=== PATIENT | female | born 1990 | race Caucasian/White ===

== ENCOUNTER → 2019-11-15 | Outpatient (REF) | payer OTHER, MEDICAID ==
[~2019-11-15] MED LIST: IBUP80TA PO; MAPA500T2 PO; VITAPRTA PO; ZANT150T40 PO
== END ==
LOC: M PLALAB 10:10
PROVIDERS: ATTEND Obstetrics & Gynecology
DX: Z34.91 Encounter for supervision of normal pregnancy, unspecified, first trimester (principal)

== ENCOUNTER → 2019-11-17 | Outpatient (CLI) | payer OTHER, MEDICAID | LOC: M WHC 10:49 | PROVIDERS: ATTEND Obstetrics & Gynecology | DX: O02.1 Missed abortion (principal) ==

== ENCOUNTER 2019-11-30 16:47 | Observation (INO) | payer MEDICAID, OTHER ==
[~2019-11-30] VITALS: Ht 170.2 cm; Wt 109.8 kg
[2019-11-30] MEDS ORDERED: NAPR220C23 PO (16:57)
[2019-11-30] MEDS ORDERED: NS 1,000 ML IV ONE ×2 (17:15→21:15)
[2019-11-30] MEDS ORDERED: ONDANSETRON 4MG/2ML VIAL IV ONE ×2 (17:15→23:00)
[2019-11-30] MEDS ORDERED: ACETAMINOPHEN TAB 650MG DOSE (2X325MG) PO ONE (17:30)
[2019-11-30 17:41] LABS: BASO # 0.1 10^3/uL (0.0-0.2); BASO % 0.5 % (0.0-1.0); EOS # 0.1 10^3/uL (0.0-0.5); HEMATOCRIT 36.8 % (36.0-47.0); HEMOGLOBIN 12.3 g/dl (12.0-15.5); LYMPH # 2.8 10^3/uL (1.5-5.0); LYMPH % 19.1 % (24.0-44.0); MEAN CORPUSCULAR HEMOGLOBIN 30.4 pg (27.0-33.0); MEAN CORPUSCULAR HGB CONC 33.4 g/dl (32.0-36.5); MEAN CORPUSCULAR VOLUME 90.9 fl (80.0-96.0); MONO # 0.7 10^3/uL (0.0-0.8); NEUTROPHILS # 10.7 10^3/uL (1.5-8.5); PLATELET COUNT, AUTOMATED 407 10^3/uL (150-450); RED BLOOD COUNT 4.05 10^6/uL (4.00-5.40); WHITE BLOOD COUNT 14.4 10^3/uL (4.0-10.0)
--- NOTE | 2019-11-30 18:00 | REPVR ---
PROCEDURE INFORMATION: Exam: US First Trimester, Transabdominal Exam date and time: 11/30/2019 5:48 PM Age: 29 years old Clinical indication: complicated by abdominal or pelvic pain; Lower; First trimester; Gestational age or lmp: 08/2019; ; Additional info: Heavy bleeding, current miscarriage TECHNIQUE: Imaging protocol: Real-time transabdominal obstetrical ultrasound of the maternal pelvis and a first trimester , less than 14 weeks 0 days, with image documentation. COMPARISON: No relevant prior studies available. FINDINGS: GESTATION: Gestation: Small gestational sac within the uterine fundus with an average sac size of 2 cm corresponding to a gestation of 7 weeks. Heart rate: No pole, yolk sac, or cardiac activity demonstrated. Placenta: Unremarkable. No subchorionic bleed. Amniotic fluid: Amniotic is normal for gestational age. BIOMETRY: Estimated gestational age: 11 weeks by LMP. MATERNAL: Uterus: Uterus measures 10.2 x 5.4 x 6.7 cm. Cervix: Unremarkable. Right adnexa: Unremarkable. Left adnexa: Unremarkable. Intraperitoneal: No intraperitoneal free fluid. IMPRESSION: Empty sac in the uterus most likely indicates early failure. Correlation with beta HCG levels and follow-up ultrasound recommended to exclude the possibility of a decidual cast associated with ectopic , although considered less likely. Electronically signed by: Gage Dunlap On 11/30/2019 18:00:05 PM
[2019-11-30 18:08] LABS: BLOOD UREA NITROGEN 14 MG/DL (7-18); CALCIUM LEVEL 9.2 MG/DL (8.5-10.1); CARBON DIOXIDE LEVEL 24 MEQ/L (21-32); CHLORIDE LEVEL 105 MEQ/L (98-107); CREATININE FOR GFR 0.74 MG/DL (0.55-1.30); GLOMERULAR FILTRATION RATE > 60.0 (>60); GLUCOSE, FASTING 116 MG/DL (70-100); HCG, SERUM QUANTITATIVE 1130 MIU/ML; POTASSIUM SERUM 4.1 MEQ/L (3.5-5.1); SODIUM LEVEL 138 MEQ/L (136-145)
[2019-11-30] MEDS ORDERED: miSOPROStol 200 MCG TAB (S0191) PO ONE (20:30)
[2019-11-30] MEDS ORDERED: ZOFR4TAB16 PO (20:31)
[2019-11-30] MEDS ORDERED: KETOROLAC 30 MG/ML 1ML VIAL IV ONE (22:15)
[2019-11-30 23:40] LABS: BASO # 0.1 10^3/uL (0.0-0.2); BASO % 0.6 % (0.0-1.0); EOS # 0.1 10^3/uL (0.0-0.5); EOS % 1.1 % (0.0-3.0); HEMATOCRIT 27.4 % (36.0-47.0); LYMPH # 3.7 10^3/uL (1.5-5.0); LYMPH % 36.1 % (24.0-44.0); MEAN CORPUSCULAR HEMOGLOBIN 30.4 pg (27.0-33.0); MEAN CORPUSCULAR HGB CONC 32.8 g/dl (32.0-36.5); MEAN CORPUSCULAR VOLUME 92.6 fl (80.0-96.0); MONO # 0.6 10^3/uL (0.0-0.8); MONO % 5.9 % (0.0-5.0); NEUTROPHILS # 5.7 10^3/uL (1.5-8.5); NEUTROPHILS % 55.7 % (36.0-66.0); PLATELET COUNT, AUTOMATED 317 10^3/uL (150-450); RED BLOOD COUNT 2.96 10^6/uL (4.00-5.40); WHITE BLOOD COUNT 10.2 10^3/uL (4.0-10.0)
[2019-12-01] VITALS (9 sets, daily range): BP systolic 98–108; BP diastolic 54–59
[2019-12-01] MEDS ORDERED: NS 1,000 ML IV ONE (00:15)
[2019-12-01 02:11] LABS: BASO # 0.1 10^3/uL (0.0-0.2); BASO % 0.4 % (0.0-1.0); EOS # 0.1 10^3/uL (0.0-0.5); EOS % 0.6 % (0.0-3.0); HEMATOCRIT 24.3 % (36.0-47.0); HEMOGLOBIN 7.9 g/dl (12.0-15.5); LYMPH # 2.5 10^3/uL (1.5-5.0); LYMPH % 17.8 % (24.0-44.0); MEAN CORPUSCULAR HEMOGLOBIN 30.2 pg (27.0-33.0); MEAN CORPUSCULAR HGB CONC 32.5 g/dl (32.0-36.5); MEAN CORPUSCULAR VOLUME 92.7 fl (80.0-96.0); MONO # 0.6 10^3/uL (0.0-0.8); MONO % 4.4 % (0.0-5.0); NEUTROPHILS # 10.6 10^3/uL (1.5-8.5); NEUTROPHILS % 76.2 % (36.0-66.0); PLATELET COUNT, AUTOMATED 297 10^3/uL (150-450); RED BLOOD COUNT 2.62 10^6/uL (4.00-5.40); WHITE BLOOD COUNT 13.9 10^3/uL (4.0-10.0)
[2019-12-01] MEDS ORDERED: LIDOCAINE 1% SDV 30ML VIAL As Ordered ONE (03:29)
[2019-12-01] MEDS ORDERED: MIDAZOLAM INJ 2MG/2ML VIAL (J2250 PER 1MG) As Ordered ONE (03:29)
[2019-12-01] MEDS ORDERED: dexameTHASONE 4 MG/ML 1ML VIAL (J1100 PER 1MG) As Ordered ONE (03:30)
[2019-12-01] MEDS ORDERED: fentaNYL 100 MCG/2 ML INJECTION (J3010) As Ordered ONE ×2 (03:30→05:02)
[2019-12-01] MEDS ORDERED: LIDOCAINE 2% 100MG/5ML SDV (FOR ANES.) As Ordered ONE (03:30)
[2019-12-01] MEDS ORDERED: ONDANSETRON 4MG/2ML VIAL As Ordered ONE (03:30)
[2019-12-01] MEDS ORDERED: propofoL 200 MG/20 ML VIAL As Ordered ONE (03:32)
[2019-12-01] MEDS ORDERED: ROCURONIUM BROMIDE 50 MG/5 ML VIAL As Ordered ONE (03:58)
[2019-12-01] MEDS ORDERED: SUCCINYLCHOLINE 100 MG/5 ML SYRINGE (J0330) As Ordered ONE (04:08)
[2019-12-01] MEDS ORDERED: PHENYLephrine HCL 500 MCG/5 ML (100MCG/ML) SYRINGE (J2370) As Ordered ONE (04:18)
[2019-12-01] MEDS ORDERED: ePHEDrine SULFATE 25 MG/5 ML(5MG/ML) SYRINGE As Ordered ONE (04:19)
[2019-12-01] MEDS ORDERED: SUGAMMADEX SODIUM 500 MG/5 ML VIAL (BRIDION) As Ordered ONE (04:20)
[2019-12-01] MEDS ORDERED: SILVER NITRATE APPLICATOR As Ordered ONE (04:20)
[2019-12-01] MEDS ORDERED: LR 1,000 ML IV SCH ×2 (04:30→05:00)
[2019-12-01] MEDS ORDERED: oxyCODONE 5MG TAB PO PRN (04:30)
[2019-12-01] MEDS ORDERED: ONDANSETRON 4MG/2ML VIAL IV PRN (04:30)
[2019-12-01] MEDS ORDERED: fentaNYL 100 MCG/2 ML INJECTION (J3010) IV PRN (04:30)
[2019-12-01] MEDS ORDERED: ACETAMINOPHEN 1000MG 100ML IV BTL (OFIRMEV) (J0131 PER 10MG) As Ordered ONE (04:50)
[2019-12-01] MEDS ORDERED: DOXYCYCLINE HYCLATE 100MG TABLET PO ONE (05:00)
[2019-12-01] MEDS ORDERED: PERCOCET 5MG/325MG TAB PO PRN (05:00)
[2019-12-01] MEDS ORDERED: ACETAMINOPHEN *IV* 1,000 MG in IV 1 EA IV PRN (05:00)
[2019-12-01 08:21] LABS: HEMATOCRIT 29.4 % (36.0-47.0); MEAN CORPUSCULAR HEMOGLOBIN 31.1 pg (27.0-33.0); MEAN CORPUSCULAR VOLUME 91.3 fl (80.0-96.0); PLATELET COUNT, AUTOMATED 271 10^3/uL (150-450); RED BLOOD COUNT 3.22 10^6/uL (4.00-5.40); WHITE BLOOD COUNT 10.9 10^3/uL (4.0-10.0)
--- NOTE | 2019-12-01 11:49 | ROOPDOC ---
[facility] Report Of Operation Report of Operation DATE OF PROCEDURE: 12/01/19 PREOPERATIVE DIAGNOSIS: Incomplete . POSTOPERATIVE DIAGNOSIS:, Incomplete . PROCEDURE PERFORMED: Dilation with sharp and suction curettage. SURGEON: Princess Hanna MD ROOFER: None. ANESTHESIA: Gen. via laryngeal mask airway. ESTIMATED BLOOD LOSS: 10 mL. INTRAVENOUS FLUIDS: 600 mL. 2 units of packed red blood cells for symptomatic blood loss URINE OUTPUT: Was not obtained. SPECIMENS: Intrauterine contents. ANTIBIOTICS GIVEN POSTOPERATIVELY: 200 mg of doxycycline. DESCRIPTION OF OPERATION: After informed consent was obtained and written consent was reviewed, the patient was brought to the operating room where general anesthesia was obtained. She was placed in the lithotomy position and was prepped and draped in a normal sterile fashion. A time-out in the operating room was then performed identifying the patient, procedure to be performed, as well as drug allergies. A bivalve speculum was then placed revealing the cervix. The anterior lip of the cervix was grasped with a single tenaculum. The uterus was then sounded to 8 cm, cervix then sequentially dilated using Hanks dilators. A number and 9 suction curette was then advanced through the cervical os to the level of the fundus and was attached to suction. Suction was deployed and the uterus was curetted in a 360-degree fashion with minimal amounts of tissue obtained on two passes. The suction curette was then removed. A sharp curette was then advanced through the cervical os to the level of the fundus and the uterus was curetted in a 360-degree fashion with minimal amounts of tissue obtained. A final pass of the suction curette was then performed, only productive of minimal daniela of blood. The instruments were then removed from the patient's vagina. Tenaculum was removed. Tenaculum sites were noted to be hemostatic. Speculum was then removed. The patient was awakened from anesthesia and then taken out of the lithotomy position, was taken to recovery in stable condition. Counts were correct. PRINCESS HANNA MD. December 01, 2019 11:49
== END 2019-12-01 18:12 | disposition home or self-care (01) ==
LOC: M ED 16:47 → M ED INP 23:10 → CANRESERV 23:55 → ENRESERV 23:55 → M PED 12-01 06:17
PROVIDERS: ADMIT Obstetrics & Gynecology; ATTEND Obstetrics & Gynecology
DX: O03.4 Incomplete spontaneous abortion without complication (principal); D64.9 Anemia, unspecified; R42 Dizziness and giddiness; I95.1 Orthostatic hypotension; Z79.899 Other long term (current) drug therapy; Z79.891 Long term (current) use of opiate analgesic; Z11.59 Encounter for screening for other viral diseases
CPT/HCPCS: 36415; 36430; 59812; 76801; 80048; 84702; 85025; 85027; 86850; 86900; 86901; 86920; 88305; 93041; 93976; 94760; 96361; 96374; 96375; 96376; 99285; J0131; J0330; J1100; J1885; J2250; J2370; J2405; J3010; P9016; U0002

== ENCOUNTER 2020-04-15 12:41 | Emergency (ER) | payer OTHER ==
[~2020-04-15] VITALS: Ht 170.2 cm; Wt 96.8 kg
[2020-04-15 12:41] VITALS: BP 118/68
[~2020-04-15 12:41] MED LIST changes: +NAPR220C23 PO; +ZOFR4TAB16 PO
[2020-04-15] MEDS ORDERED: BUSP10TA PO (12:47)
[2020-04-15] MEDS ORDERED: SERT-138 PO (12:47)
[2020-04-15] MEDS ORDERED: OMEP-218 PO (12:47)
[2020-04-15] MEDS ORDERED: BUPR150T5 PO (12:47)
== END 2020-04-15 13:32 | disposition home or self-care (01) ==
LOC: M ED 12:41
DX: J06.9 Acute upper respiratory infection, unspecified (principal); B34.9 Viral infection, unspecified; Z79.899 Other long term (current) drug therapy
CPT/HCPCS: 87880; 99283; U0003

== ENCOUNTER → 2020-06-22 | Outpatient (CLI) | payer OTHER ==
[~2020-06-22] MED LIST changes: +BUPR150T5 PO; +BUSP10TA PO; +OMEP-218 PO; +SERT-138 PO
== END ==
LOC: M LAB 18:34
PROVIDERS: ATTEND Obstetrics & Gynecology
DX: O36.80X9 Pregnancy with inconclusive fetal viability, other fetus (principal); Z3A.00 Weeks of gestation of pregnancy not specified

== ENCOUNTER → 2020-06-25 | Outpatient (CLI) | payer OTHER | LOC: M LAB 14:10 | PROVIDERS: ATTEND Obstetrics & Gynecology | DX: O36.70X0 Maternal care for viable fetus in abdominal pregnancy, unspecified trimester, not applicable or unspecified (principal); Z3A.00 Weeks of gestation of pregnancy not specified ==

== ENCOUNTER → 2020-08-02 | Outpatient (REF) | payer OTHER, MEDICAID ==
[2020-08-02 14:53] LABS: HEMATOCRIT 39.3 % (36.0-47.0); HEMOGLOBIN 12.7 g/dl (12.0-15.5); MEAN CORPUSCULAR HGB CONC 32.3 g/dl (32.0-36.5); MEAN CORPUSCULAR VOLUME 92.9 fl (80.0-96.0); PLATELET COUNT, AUTOMATED 262 10^3/uL (150-450); RED BLOOD COUNT 4.23 10^6/uL (4.00-5.40); WHITE BLOOD COUNT 9.6 10^3/uL (4.0-10.0)
[2020-08-03 10:09] LABS: HEPATITIS C VIRUS ABY INDEX < 0.0 INDEX (<0.8); HIV 1&2 SCREEN CENTAUR NEGATIVE (NEGATIVE)
[2020-08-03 14:44] LABS: CHLAMYDIA DNA AMPLIFICATION NEGATIVE (NEGATIVE); GC DNA AMPLIFICATION NEGATIVE (NEGATIVE)
== END ==
LOC: M PLALAB 11:09
PROVIDERS: ATTEND Specialist
DX: Z34.81 Encounter for supervision of other normal pregnancy, first trimester (principal)

== ENCOUNTER → 2020-08-27 | Outpatient (CLI) | payer OTHER, MEDICAID | LOC: M PLALAB 09:08 | PROVIDERS: ATTEND Specialist | DX: O30.001 Twin pregnancy, unspecified number of placenta and unspecified number of amniotic sacs, first trimester (principal) ==

== ENCOUNTER → 2020-09-10 | Outpatient (CLI) | payer OTHER, MEDICAID | LOC: M WHC 08:03 | PROVIDERS: ATTEND Obstetrics & Gynecology | DX: O30.012 Twin pregnancy, monochorionic/monoamniotic, second trimester (principal); Z3A.16 16 weeks gestation of pregnancy ==

== ENCOUNTER → 2020-11-21 | Outpatient (REF) | payer OTHER, MEDICAID ==
[2020-11-21 13:26] LABS: HEMATOCRIT 31.5 % (36.0-47.0); HEMOGLOBIN 10.3 g/dl (12.0-15.5); MEAN CORPUSCULAR HEMOGLOBIN 30.3 pg (27.0-33.0); MEAN CORPUSCULAR HGB CONC 32.7 g/dl (32.0-36.5); MEAN CORPUSCULAR VOLUME 92.6 fl (80.0-96.0); PLATELET COUNT, AUTOMATED 242 10^3/uL (150-450); WHITE BLOOD COUNT 13.6 10^3/uL (4.0-10.0)
== END ==
LOC: M PLALAB 10:52
PROVIDERS: ATTEND Specialist
DX: O30.042 Twin pregnancy, dichorionic/diamniotic, second trimester (principal)

== ENCOUNTER → 2021-01-24 | Outpatient (REF) | payer OTHER, MEDICAID ==
[~2021-01-24] MED LIST changes: +COLA100C5 PO; +FAMO-142 PO; +IRON27TA2 PO; +MULTTAB20 PO; +OMEP-173 PO; -OMEP-218 PO; +TUMS750C5 PO; +UNIS25TA3 PO
== END ==
LOC: M SFHCWAGY 17:13
PROVIDERS: ATTEND Obstetrics & Gynecology
DX: Z36.89 Encounter for other specified antenatal screening (principal); Z3A.36 36 weeks gestation of pregnancy

== ENCOUNTER 2021-01-26 12:58 | Outpatient (CLI) | payer OTHER, MEDICAID ==
[~2021-01-26] VITALS: Ht 170.2 cm; Wt 111.3 kg
[~2021-01-26 12:58] MED LIST changes: -COLA100C5 PO; -FAMO-142 PO; -IRON27TA2 PO; -MULTTAB20 PO; -OMEP-173 PO; +OMEP-218 PO; -TUMS750C5 PO; -UNIS25TA3 PO
[2021-01-26 13:13] VITALS: BP 109/69
[2021-01-26] MEDS ORDERED: UNIS25TA3 PO (14:04)
[2021-01-26] MEDS ORDERED: IRON27TA2 PO (14:04)
[2021-01-26] MEDS ORDERED: MULTTAB20 PO (14:04)
[2021-01-26] MEDS ORDERED: COLA100C5 PO (14:04)
[2021-01-26] MEDS ORDERED: FAMO-142 PO (14:04)
[2021-01-26] MEDS ORDERED: TUMS750C5 PO (14:04)
[2021-01-26 14:23] VITALS: BP 122/74
[2021-01-26] MEDS ORDERED: NIFEdipine 10 MG CAP PO ONE ×2 (14:25→15:55)
[2021-01-26] MEDS ORDERED: LACTATED RINGER'S 1000 ML IV STA (14:25)
[2021-01-26] MEDS ORDERED: PENICILLIN G POTASSIUM IV 5 MU in D5W MINI-BAG PLUS 100 ML IV STA (14:25)
[2021-01-26] MEDS ORDERED: LR 1,000 ML IV SCH (14:25)
[2021-01-26 14:37] VITALS: BP 122/74
--- NOTE | 2021-01-26 14:53 | IPNPDOC ---
Text Note Date of Service The patient was seen on 01/26/21. NOTE H&P / Transfer Note: S: 20yo at 36w3d by 1st trimester u/s with with known dichorionic diamnionic twin gestation, presents with regular contractions since 11 AM. 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 She is also had abnormal panorama screening suggestive of Down syndrome of 1 with twins. She's currently a patient of [facility] and plans for delivery there. PMHx: Bipolar PSHx: Cholecystectomy 2011. LEEP in 2007. D&C 2020 SH: Former smoker. Lives at home with her and son NKDA Physical exam: Vital signs: Stable afebrile tracing: Category 12 with moderate variability. Contractions approximately every 3-4 minutes on tocometer. Gen. appearance: Well-appearing no acute distress Abdomen: Gravid nontender Cervical exam: 3 cm/75%/-2/cephalic A/P: Mrs. Xiong is a 30-year-old 3 para 1 at 36 weeks and 3 days with contractions concerning for labor Dichorionic diamniotic twin gestation with known cardiac defect of twin B- currently stable Plans for maternal transport to [place] with Dr. Hudson accepting physician. I discussed maternal transport with couple with risks of triple transport to include further progression of labor and delivery and route and motor vehicle accidents. Discussed benefits to include facility for cardiac surgery all questions been answered and patient desires to proceed with transport. -Antibiotics started for GBS positive status. 20 mg of nifedipine provided as well for tocolysis. Princess Hanna MD VS,Jovanni, I+O VSJovanni, I+O Vital Signs Date Time Temp Pulse Resp B/P (MAP) Pulse Ox O2 Delivery O2 Flow Rate FiO2 01/26/21 14:23 109 122/74 (90) 01/26/21 13:13 97.4 18 PRINCESS HANNA MD. Jan 26, 2021 14:53
[2021-01-26 15:59] VITALS: BP 106/64
== END 2021-01-26 16:15 | disposition other institution (70) ==
LOC: M LDO 12:58
PROVIDERS: ATTEND Obstetrics & Gynecology
DX: O30.043 Twin pregnancy, dichorionic/diamniotic, third trimester (principal); Z3A.36 36 weeks gestation of pregnancy; O47.03 False labor before 37 completed weeks of gestation, third trimester; O35.8XX2 Maternal care for other (suspected) fetal abnormality and damage, fetus 2; O99.343 Other mental disorders complicating pregnancy, third trimester; F31.9 Bipolar disorder, unspecified; Z87.891 Personal history of nicotine dependence; O99.824 Streptococcus B carrier state complicating childbirth
CPT/HCPCS: 59025; 96374; U0002

== ENCOUNTER → 2023-08-28 | Outpatient (CLI) | payer MEDICAID, OTHER ==
[~2023-08-28] MED LIST changes: +BUPR-71 PO; -BUPR150T5 PO; +COLA100C5 PO; +FAMO-142 PO; +IRON27TA2 PO; +MULTTAB20 PO; +OMEP-173 PO; -OMEP-218 PO; +TUMS750C5 PO; +UNIS25TA3 PO
== END ==
LOC: M RAD 08:27
PROVIDERS: ATTEND Nurse Practitioner Family
DX: M25.561 Pain in right knee (principal)

== ENCOUNTER → 2023-09-11 | Outpatient (REF) | payer OTHER ==
[2023-09-11 13:36] LABS: BASO % 0.6 % (0.0-1.0); EOS # 0.1 10^3/uL (0.0-0.5); HEMATOCRIT 40.7 % (36.0-47.0); HEMOGLOBIN 13.6 g/dl (12.0-15.5); LYMPH # 2.3 10^3/uL (1.5-5.0); LYMPH % 31.8 % (24.0-44.0); MEAN CORPUSCULAR HEMOGLOBIN 30.6 pg (27.0-33.0); MEAN CORPUSCULAR HGB CONC 33.4 g/dl (32.0-36.5); MEAN CORPUSCULAR VOLUME 91.7 fl (80.0-96.0); MONO # 0.5 10^3/uL (0.0-0.8); MONO % 7.1 % (2.0-8.0); NEUTROPHILS # 4.1 10^3/uL (1.5-8.5); NEUTROPHILS % 58.4 % (36.0-66.0); PLATELET COUNT, AUTOMATED 285 10^3/uL (150-450); RED BLOOD COUNT 4.44 10^6/uL (4.00-5.40); WHITE BLOOD COUNT 7.1 10^3/uL (4.0-10.0)
[2023-09-11 13:44] LABS: ALBUMIN 3.9 G/DL (3.2-5.2); ALKALINE PHOSPHATASE 60 U/L (46-116); ALT/SGPT 36 U/L (7.0-40); AST/SGOT 13 U/L (<34); BILIRUBIN,TOTAL 0.4 MG/DL (0.3-1.2); BLOOD UREA NITROGEN 14 MG/DL (9-23); CALCIUM LEVEL 9.5 MG/DL (8.5-10.1); CARBON DIOXIDE LEVEL 26 MMOL/L (20-31); CHLORIDE LEVEL 105 MMOL/L (98-107); CHOLESTEROL LEVEL 154 MG/DL (<200); CHOLESTEROL RISK RATIO 3.18 (<5); CREATININE FOR GFR 0.58 MG/DL (0.55-1.30); GLOMERULAR FILTRATION RATE > 60.0 (>60); GLUCOSE, FASTING 97 MG/DL (60-100); HDL CHOLESTEROL 48.3 MG/DL (>40); IRON (FE) 99 UG/DL (50-170); LDL CHOLESTEROL 77.9 MG/DL (<100); NON-HDL-C 105.7 MG/DL; PERCENT SATURATION 29.7 % (13.2-45.0); POTASSIUM SERUM 4.4 MMOL/L (3.5-5.1); SODIUM LEVEL 137 MMOL/L (136-145); TOTAL IRON BINDING CAPACITY 333 UG/DL (250-425); TOTAL PROTEIN 6.8 G/DL (5.7-8.2); TRIGLYCERIDES LEVEL 139 MG/DL (<150)
[2023-09-11 13:51] LABS: TOTAL 25(OH) VITAMIN D 31.1 NG/ML (20.0-100.0)
[2023-09-11 14:01] LABS: HEMOGLOBIN A1c 5.1 % (4.0-6.0)
== END ==
LOC: M LAB REF 13:09
PROVIDERS: ATTEND Nurse Practitioner Family
DX: E66.3 Overweight (principal); E55.9 Vitamin D deficiency, unspecified; R53.83 Other fatigue; R61 Generalized hyperhidrosis; Z11.9 Encounter for screening for infectious and parasitic diseases, unspecified; Z86.39 Personal history of other endocrine, nutritional and metabolic disease

== ENCOUNTER → 2023-11-06 | Outpatient (CLI) | payer OTHER | LOC: M SLEEP HO 11:00 | PROVIDERS: ATTEND Nurse Practitioner Family | DX: R06.83 Snoring (principal) ==

== ENCOUNTER 2025-02-28 07:56 | Day surgery (SDC) | payer OTHER ==
[~2025-02-28] VITALS: Ht 170.2 cm; Wt 91.3 kg
[~2025-02-28 07:56] MED LIST changes: +FLUO-365 PO; +IBUP-1022 PO
[2025-02-28] MEDS: LR 1,000 ML IV SCH (08:40)
[2025-02-28] MEDS ORDERED: MIDAZOLAM INJ 2 MG/2 ML VIAL As Ordered ONE (09:01)
[2025-02-28] MEDS: SCOPOLAMINE 1MG TRANSDERMAL PATCH TOP ONE (09:10)
[2025-02-28] MEDS: ceFAZolin SODIUM 2 GM in DEXTROSE 5% (D5W) ADV/MINI-BAG 50 ML IV ONE (09:32)
[2025-02-28] MEDS: LIDOCAINE W/EPINEPHrine 1% 20 ML VIAL As Ordered ONE (10:00)
[2025-02-28] MEDS: MORPHINE 10 MG/ML 1 ML VIAL As Ordered ONE (10:15)
[2025-02-28] MEDS ORDERED: LR 1,000 ML IV SCH (10:30)
[2025-02-28] MEDS ORDERED: HYDROMORPHONE HCL 0.5 MG/0.5 ML SYRINGE IV PRN (10:30)
[2025-02-28] MEDS: ONDANSETRON 4MG 2ML VIAL IV PRN (11:52)
[2025-02-28] MEDS: SIMETHICONE 80MG CHEW TAB PO STA (11:57)
[2025-02-28 12:20] VITALS: BP 119/72; TEMP 97.1; O2SAT 99
== END 2025-02-28 12:37 | disposition home or self-care (01) ==
LOC: M SDC 07:56
PROVIDERS: ATTEND Neuromusculoskeletal Medicine, Sports Medicine
DX: M22.2X1 Patellofemoral disorders, right knee (principal); M22.41 Chondromalacia patellae, right knee; M25.861 Other specified joint disorders, right knee; M65.861 Other synovitis and tenosynovitis, right lower leg; F32.A Depression, unspecified; F41.9 Anxiety disorder, unspecified; Z79.899 Other long term (current) drug therapy; Z87.891 Personal history of nicotine dependence
CPT/HCPCS: 29873; 81025; J0665; J0690; J2250; J2405; J3010

== ENCOUNTER 2025-03-17 14:15 | Outpatient (RCR) | payer OTHER ==
[~2025-03-17 14:15] MED LIST changes: -IBUP-1022 PO; +IBUP600T42 PO
== END 2025-03-19 ==
LOC: M PT 14:15
PROVIDERS: ATTEND Neuromusculoskeletal Medicine, Sports Medicine
DX: M22.41 Chondromalacia patellae, right knee (principal); M65.861 Other synovitis and tenosynovitis, right lower leg

== ENCOUNTER 2025-04-14 15:45 | Outpatient (RCR) | payer OTHER | END 2025-04-18 | LOC: M PT 15:45 | PROVIDERS: ATTEND Neuromusculoskeletal Medicine, Sports Medicine | DX: M22.41 Chondromalacia patellae, right knee (principal) ==